=== PATIENT | female | born 1985 | race Caucasian/White ===

== ENCOUNTER → 2019-04-04 | Outpatient (CLI) | payer BC ==
[~2019-04-04] MED LIST: CATHETER FLUSH 10 ML SYR IV PRN
--- NOTE | 2019-04-04 14:15 | Diagnostic Imaging Report ---
INDICATION: Elevated liver function tests. TECHNIQUE: Patient was administered 5.4 mCi technetium 99m Choletec intravenously and imaging over the abdomen was performed. At 45 minutes, patient ingested 8 ounces of Ensure and a gallbladder ejection fraction was calculated. FINDINGS: There is homogeneous uptake of activity by the liver with prompt excretion of activity into the common duct and gallbladder. There is passage of activity into the small bowel. Gallbladder ejection fraction is 91%. IMPRESSION: 1. Patent cystic duct and common bile duct. 2. Gallbladder ejection fraction of 91%. Dictated by: Dictated on workstation # [id number]
== END ==
LOC: CARD 11:51
PROVIDERS: ATTEND Family Medicine
DX: R74.8 Abnormal levels of other serum enzymes (principal)
CPT/HCPCS: 78227

== ENCOUNTER → 2022-12-25 | Outpatient (CLI) | payer SELFPAY ==
--- NOTE | 2022-12-25 18:17 | Diagnostic Imaging Report ---
INDICATION: Screening for coronary calcification, family history of coronary disease. CT coronary calcium study performed with noncontrast images of the heart followed by calculation of coronary calcium score. Dose reduction protocol was used. Raw data images demonstrate no mediastinal or hilar adenopathy. There is no pleural fluid. The visualized portions of the lung pierce are clear. There are no significant coronary artery calcifications. Coronary artery calcium score was 0 in all territories. IMPRESSION: CT coronary calcium score was 0. Dictated by: Dictated on workstation # [id number]
== END ==
LOC: RAD 15:56
PROVIDERS: ATTEND Family Medicine
DX: Z13.6 Encounter for screening for cardiovascular disorders (principal); Z82.49 Family history of ischemic heart disease and other diseases of the circulatory system
CPT/HCPCS: 75571